=== PATIENT | male | born 2005 | race Two or more races ===

== ENCOUNTER 2025-01-02 14:34 | Emergency (ER) | payer BC ==
[~2025-01-02] VITALS: Ht 182.9 cm; Wt 68.0 kg
[2025-01-02] MEDS ORDERED: KETOROLAC TROMETHAMINE 30 MG VIAL IM STA (16:41)
[2025-01-02] MEDS ORDERED: CEFTRIAXONE SODIUM 1,000 MG VIAL IM STA (16:41)
[2025-01-02] MEDS ORDERED: CIPROFLOXACIN1 EACH OTIC (17:10)
[2025-01-02] MEDS ORDERED: AMOX1TAB5 PO (17:10)
[2025-01-02] MEDS ORDERED: CIPROFLOX-DEXA7.5 ML OT (17:15)
== END 2025-01-02 17:45 | disposition home or self-care (01) ==
LOC: ER 14:34 → EMR PED 15:23
DX: H66.90 Otitis media, unspecified, unspecified ear (principal)